=== PATIENT | female | born 1930 | race Caucasian/White ===

== ENCOUNTER 2017-01-16 12:06 | Emergency (ER) | payer OTHER, BC ==
[2017-01-16] MEDS ORDERED: AmLODIPine Tab 5 MG TABLET PO ONE (12:16)
[2017-01-16 12:23] VITALS: RESP 18; TEMP 97.1
[2017-01-16 12:47] LABS: BASOPHILS # (AUTO) 0.04 10*3/UL; BASOPHILS % (AUTO) 0.6 % (0-1); EOSINOPHILS # (AUTO) 0.19 10*3/UL; EOSINOPHILS % (AUTO) 2.8 % (0-8); HEMATOCRIT 40.6 % (37.0-47.0); HEMOGLOBIN 13.5 g/dL (12.0-16.0); LYMPHOCYTES # (AUTO) 2.44 10*3/uL; MEAN CORPUSCULAR HEMOGLOBIN 30.2 PG (27-31); MEAN CORPUSCULAR HGB CONC 33.3 g/dL (33-37); MEAN CORPUSCULAR VOLUME 90.8 FL (81-99); MEAN PLATELET VOLUME 10.4 FL (7.4-12.2); MONOCYTES # (AUTO) 0.71 10*3/UL (0.3-0.8); MONOCYTES % (AUTO) 10.6 % (5-15); NEUTROPHILS # (AUTO) 3.27 10*3/UL; NEUTROPHILS % (AUTO) 49.1 % (50-80); RED BLOOD COUNT 4.47 10^6/uL (4.20-5.40)
[2017-01-16 12:49] LABS: PLATELET MORPHOLOGY COMMENT NORMAL MORPHOLOGY (NORM); RBC MORPHOLOGY COMMENT NORMAL MORPHOLOGY (NORM); WBC MORPHOLOGY COMMENT NORMAL MORPHOLOGY (NORM)
[2017-01-16 12:56] LABS: CALCIUM 10.6 mg/dL (8.7-10.7)
[2017-01-16 12:57] LABS: BILIRUBIN,URINE NEGATIVE (NEG); COLOR,URINE YELLOW; GLUCOSE, URINE (UA) NEGATIVE (NEG); NITRATE,URINE NEGATIVE (NEG); OCCULT BLOOD,URINE NEGATIVE (NEG); PH,URINE 7.5 (5.0-8.5); PROTEIN,URINE NEGATIVE (NEG); UROBILINOGEN,URINE 0.2 EU/dL (0.2)
--- NOTE | 2017-01-16 12:57 | PDOC ---
General Adult HPI - General Chief Complaint: General Medical Stated Complaint: High BP Date Seen by Provider: 01/16/17 Time Seen by Provider: 12:20 Source: POSITIVE: Patient Exam Limitations: POSITIVE: No limitations Nurse's Notes Reviewed & Considered: Yes - History of Present Illness Initial Comment: The patient is an 86-year-old female who presents to the emergency department with elevated blood pressure. She states that she recently bought a new blood pressure cuff. Her blood pressure the last couple of days has been elevated. Today her blood pressure was quite elevated. She denies any associated symptoms and specifically denies any chest pain, shortness of breath, numbness or weakness in her extremities other than chronic numbness in her hands from arthritis. She does report a mild pressure behind her eyes however denies headache or vision changes otherwise. She does have a history of hypertension and has been taking Hyzaar and atenolol for quite some time. Have you received a tetanus shot in the past 10 years?: Yes - Patient Home Medications Home Medications: Home Medications Allopurinol 100 mg PO DAILY 01/16/17 Amlodipine Besylate [Norvasc] 5 mg PO DAILY #30 tab 01/16/17 Atenolol 25 mg PO BID 01/16/17 Levothyroxine Sodium 112 mcg PO DAILY 01/16/17 Losartan/Hydrochlorothiazide [Hyzaar 100-12.5 Tablet] 1 each PO DAILY 01/16/17 - Patient Allergies Allergies/Adverse Reactions: Allergies Allergy/AdvReac Type Severity Reaction Status Date / Time Penicillins Allergy SWELLING Verified 01/16/17 12:12 Past Medical History - heen HEENT History: Denies History Cardiovascular History: Hypertension Respiratory History: Denies History Gastrointestinal History: Denies History Genitourinary History: Denies History Endocrine History: Hypothyroidism Musculoskeletal History: Denies History Prosthesis or Implant: No Neurological History: Denies History Blood Disorders: Denies History Psychiatric History: Denies History History of Sexually Transmitted Diseases: No Female Reproductive History: Hysterectomy Cancer History: Denies History In Past Year Been Physically Harmed or Verbally Threatened: No History of MDRO: No History of Other Communicable Diseases: No Tobacco Use: Former Smoker Alcohol Use: None Substance Use Type: None Previous Surgical History: No Past Medical History Reviewed: Reviewed - No Changes ROS - Limitations ROS Limitations: No Limitations Constitution: DENIES: Chills, Fever Cardiovascular: REPORTS: Edema (Slight edema in her lower extremities chronically, more in her left foot secondary to a recent injury). DENIES: Chest Pain, Heart Racing Respiratory: REPORTS: Denies Resp Symptoms Neurological: REPORTS: Denies Neuro Symptoms Gastrointestinal: REPORTS: Denies GI Symptoms Eyes: REPORTS: Denies Symptoms. DENIES: Vision Changes ENT: REPORTS: Denies Symptoms General Adult Exam - General Appearance General Appearance: POSITIVE: Alert, Cooperative, No Acute Distress - HEENT HEENT: POSITIVE: Head Inspection Nml, Eyes Inspection Nml, Ears Inspection Nml, Nose Inspection Nml - Neck Neck: POSITIVE: Normal Inspection. NEGATIVE: Lymphadenopathy - Respiratory Respiratory: POSITIVE: No Respiratory Distress, Breath Sounds Normal - Cardiovascular Cardiovascular: POSITIVE: Regular Rate & Rhythm, No Murmur Peripheral Pulses: Dorsalis-pedis (R): 2+, Dorsalis-pedis (L): 2+ - Abdomen Abdomen: No Distention: (All Quadrants) - Skin Skin: POSITIVE: Normal Color, No Rash - Extremities Extremity: Normal ROM: (All Extremities), Normal Inspection: (All Extremities) ( trace edema in the lower extremities) - Neurological / Psychological Neurological: POSITIVE: Oriented X3, brand ambassador Normal As Tested, Motor Normal, Sensation Normal General Adult Progress - Results Reviewed by me Lab Results Reviewed: Yes Lab Results:: Laboratory Results 01/16/17 01/16/17 01/16/17 Range/Units 12:16 12:17 12:27 WBC 6.68 (4.8-10.8) 10^3/uL RBC 4.47 (4.20-5.40) 10^6/uL Hgb 13.5 (12.0-16.0) g/dL Hct 40.6 (37.0-47.0) % MCV 90.8 (81-99) FL MCH 30.2 (27-31) PG MCHC 33.3 (33-37) g/dL RDW Std Deviation 46.2 (39-50) fL RDW Coeff of Diana 14.1 (11.5-14.5) % Plt Count 252 (140-350) 10*3/uL MPV 10.4 (7.4-12.2) FL Immature Gran % (Auto) 0.4 (0-5) % Neut % (Auto) 49.1 L (50-80) % Lymph % (Auto) 36.5 (10-50) % Spink % (Auto) 10.6 (5-15) % Eos % (Auto) 2.8 (0-8) % Baso % (Auto) 0.6 (0-1) % Immature Gran # (Auto) 0.03 10*3/UL Neut # (Auto) 3.27 10*3/UL Lymph # (Auto) 2.44 10*3/uL Spink # (Auto) 0.71 (0.3-0.8) 10*3/UL Eos # (Auto) 0.19 10*3/UL Baso # (Auto) 0.04 10*3/UL WBC Morphology Comment Normal morphology (NORM) Plt Morphology Comment Normal morphology (NORM) RBC Morph Comment Normal morphology (NORM) Sodium 139 (135-145) meq/L Potassium 3.8 (3.8-5.2) meq/L Chloride 99 (98-112) meq/L Carbon Dioxide 30 (23-33) meq/L Anion Gap 10 (5-20) BUN 18 (7-22) mg/dL Creatinine 0.9 (0.50-1.20) mg/dL Estimated GFR (>60 ml/min/1.73m(2)) BUN/Creatinine Ratio 20.00 (6-20) Glucose 89 (78-110) mg/dL Calculated Osmolality 288.0 (267-292) mOsm/kg Calcium 10.6 (8.7-10.7) mg/dL Magnesium 2.0 (1.6-2.4) mg/dL Total Bilirubin 0.6 (0.3-1.2) mg/dL AST 24 (8-39) IU/L ALT 33 (9-52) IU/L Alkaline Phosphatase 62 (38-126) IU/L NT-Pro-B Natriuret Pep 370 (0-450) PG/ML Total Protein 7.7 (6.1-8.0) g/dL Albumin 4.0 (3.5-4.8) g/dL Globulin 3.6 (2.50-4.10) g/dL Albumin/Globulin Ratio 1.10 L (1.3-2.0) mg/g Ur Collection Type Clean catch urine Urine Color Yellow Urine Clarity Clear (CLEAR) Urine pH 7.5 (5.0-8.5) Ur Specific [place]mell 1.010 (1.005-1.030) Urine Protein Negative (NEG) mg/dl Urine Glucose (UA) Negative (NEG) mg/dL Urine Ketones Negative (NEG) Urine Occult Blood Negative (NEG) Urine Nitrate Negative (NEG) Urine Bilirubin Negative (NEG) Urine Urobilinogen 0.2 (0.2) EU/dL Ur Leukocyte Esterase Negative (NEG) Ur Culture Indicated? Culture not set - Patient's Progress MDM / ED Course: The patient's initial blood pressure was 180/103. She was given a dose of Norvasc 5 mg by mouth and blood work was drawn. Her blood pressure came down to 175/85. She remained asymptomatic. Her blood work is all essentially unremarkable. The patient is from [place] and is just traveling through visiting family. She will be on an extended road trip for the next couple of months. She was started on Norvasc 5 mg daily in addition to her Hyzaar and atenolol. She will continue to monitor her blood pressure. She stated that she can follow-up with a previous primary care provider in [place] when she is there next week. She will return to the emergency room if she develops chest pain, numbness or weakness in her arms or legs, headache, any worsening or change in symptoms or if her blood pressure is consistently above 180/110. - Consult Counseled: POSITIVE: Patient, Family, RE: Lab Results, RE: DX, RE: Need for F/U Patient Care Time - Estimated PCT Patient Care Time (In Minutes): 25 Vital Signs - Recent Vital Signs Vital Signs: Vital Signs (Last 8 hours) Temp Pulse Resp BP Pulse Ox 01/16/17 13:15 171/87 01/16/17 12:15 97.1 F 78 18 180/103 90 - VS Reviewed Vital Signs Reviewed: Yes Discharge Clinical Impression: Hypertension Discharge Disposition: Discharged to Home Condition: Stable Prescriptions / Orders: Amlodipine Besylate [Norvasc] 5 mg PO DAILY #30 tab Patient Instructions Given at Discharge: Hypertension (ED) Additional Instructions: Recommend starting Norvasc (amlodipine) 5 mg dailytake in the evening to help lower your blood pressure. Continue taking the Hyzaar in the morning and continue taking atenolol in morning and evening. Return to the emergency room if any chest pain, headache, numbness or weakness in her extremities, any worsening or change in symptoms. Recommend follow-up with primary care in 1-2 weeks. Monitor your blood pressure once or twice a day and record the values. Follow Up With: NONE,NONE [Primary Care Provider] -
[2017-01-16 12:58] LABS: CLARITY,URINE CLEAR (CLEAR)
[2017-01-16 12:59] LABS: URINE SAMPLE TYPE CLEAN CATCH URINE
== END 2017-01-16 13:25 | disposition home or self-care (01) ==
LOC: ER 12:06
DX: I10 Essential (primary) hypertension (principal); R51 Headache; E03.9 Hypothyroidism, unspecified; R60.0 Localized edema
CPT/HCPCS: 80053; 81003; 83735; 83880; 85025; 99282

== ENCOUNTER → 2017-03-22 | Outpatient (CLI) | payer OTHER, BC ==
--- NOTE | 2017-03-23 00:44 | DI ---
XR KNEE CMPT 4 OR MORE VWS,03/22/2017 2:02 PM: Clinical History: Right knee pain of unspecified chronicity. Previous Exam: None at this facility. Findings: 4 views of the right knee are obtained, and demonstrate diffuse osteopenia. There is loss of joint sp mahesh tricompartmentally worse within the anterior compartment where there is sclerosis and osteophyte formation. The surrounding soft tissues are unremarkable except for a small right knee joint effusion. Impression: Osteopenia and diffuse degenerative changes of the right knee without fractures.
== END ==
LOC: ORTHO 14:17
PROVIDERS: ATTEND Orthopaedic Surgery
DX: M25.561 Pain in right knee (principal); M17.11 Unilateral primary osteoarthritis, right knee
CPT/HCPCS: 73564